=== PATIENT | female | born 1995 | race Caucasian/White ===

== ENCOUNTER 2016-10-23 18:08 | Emergency (ER) | payer MEDICAID ==
[~2016-10-23] VITALS: Ht 154.9 cm; Wt 58.1 kg
[2016-10-23 18:26] VITALS: BP 140/77
--- NOTE | 2016-10-23 19:32 | NUR ---
PATIENT TO ER BED 5
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
--- NOTE | 2016-10-23 20:06 | NUR ---
Patient being evaluated by DR. HSU at bedside.
--- NOTE | 2016-10-23 20:40 | NUR ---
TAKEN FOR X-RAY
[2016-10-23 21:24] VITALS: BP 133/75
--- NOTE | 2016-10-23 21:25 | NUR ---
Patient discharged with v/s stable BY DR. HSU. Written and verbal after care instructions given and explained. Patient alert, oriented and verbalized understanding of instructions. Ambulatory with steady gait. All questions addressed prior to discharge. ID band removed. Patient advised to follow up with PMD. Rx of NAPROSYN 500MG PO given. Patient educated on indication of medication including possible reaction and side effects. Opportunity to ask questions provided and answered.
== END 2016-10-23 21:25 | disposition home or self-care (01) ==
LOC: MED 18:08
DX: S16.1XXA Strain of muscle, fascia and tendon at neck level, initial encounter (principal); V89.2XXA Person injured in unspecified motor-vehicle accident, traffic, initial encounter; Y93.89 Activity, other specified; Y92.89 Other specified places as the place of occurrence of the external cause; Y99.8 Other external cause status
CPT/HCPCS: 72050; 81002; 81025; 99284

== ENCOUNTER 2016-12-23 22:17 | Emergency (ER) | payer MEDICAID ==
[~2016-12-23] VITALS: Ht 154.9 cm; Wt 58.1 kg
[2016-12-23 22:44] VITALS: BP 127/89
--- NOTE | 2016-12-24 00:56 | NUR ---
PATIENT LEFT WITHOUT BEING SEEN BY DR. HSU. NO FURTHER CARE PROVIDED FOR PATIENT.
== END 2016-12-24 00:56 | disposition left against medical advice (07) ==
LOC: MED 22:17
DX: R21 Rash and other nonspecific skin eruption (principal); Z53.21 Procedure and treatment not carried out due to patient leaving prior to being seen by health care provider

== ENCOUNTER 2017-09-23 17:37 | Emergency (ER) | payer MEDICAID ==
[~2017-09-23] VITALS: Ht 154.9 cm; Wt 63.0 kg
[2017-09-23 17:41] VITALS: BP 131/89
--- NOTE | 2017-09-23 17:45 | NUR ---
PATIENT PRESENTS TO ED WITH RIGHT MID ABD PAIN X1 WEEK HX NONE; DENIES N/V/D; SKIN IS PINK/WARM/DRY; AAOX4 WITH EVEN AND STEADY GAIT; LUNGS CLEAR BL; HR EVEN AND REGULAR; PT DENIES ANY FEVER, CP, SOB, OR COUGH AT THIS TIME; PATIENT STATES PAIN OF 9/10 AT THIS TIME; VSS; PATIENT POSITIONED FOR COMFORT; HOB ELEVATED; BEDRAILS UP X2; BED DOWN. ER MD MADE AWARE OF PT STATUS.
--- NOTE | 2017-09-23 18:04 | NUR ---
DR BYRNE EVALUATING AAO PT
--- NOTE | 2017-09-23 18:04 | NUR ---
Deidre chatman in [facility] - 09/23/17 at 1848 by [facility] Patient being evaluated by DR BYRNE at bedside.
[2017-09-23] MEDS ORDERED: DICYCLOMINE HCL LIQUID 20 MG, ALUMINUM HYD/MAG/SIMETHICONE 30 ML, LIDOCAINE VISCOUS 2% ... PO ONE ×3 (18:10)
--- NOTE | 2017-09-23 18:56 | NUR ---
Patient discharged with v/s stable. Written and verbal after care instructions given and explained. Patient alert, oriented and verbalized understanding of instructions. Ambulatory with steady gait. All questions addressed prior to discharge. ID band removed. Patient advised to follow up with PMD. Rx of MOTRIN, PRILOSEC given. Patient educated on indication of medication including possible reaction and side effects. Opportunity to ask questions provided and answered.
[2017-09-23 18:57] VITALS: BP 128/71
== END 2017-09-23 18:56 | disposition home or self-care (01) ==
LOC: MED 17:37
DX: R10.13 Epigastric pain (principal); R11.0 Nausea
CPT/HCPCS: 99283

== ENCOUNTER 2019-02-22 23:43 | Emergency (ER) | payer MEDICAID ==
[~2019-02-22] VITALS: Ht 154.9 cm; Wt 63.5 kg
[2019-02-22 23:51] VITALS: BP 124/69
--- NOTE | 2019-02-22 23:55 | NUR ---
TO ED LOBBY AWAITING BED IN DEPT.
--- NOTE | 2019-02-23 00:06 | NUR ---
PT AMBULATED TO ER BED 4
--- NOTE | 2019-02-23 00:24 | NUR ---
PT TO ED WITH C/O LOWER BACK PAIN WITH DYSURIA AND HEMATURIA X 3 DAYS. NO OBVIOUS BLADDER DISTENTION NOTED. ABLE TO VOID WITHOUT COMPLICATION. PT PLACED INTO BED, PENDING MD HOLMAN.
[2019-02-23] MEDS ORDERED: NACL 0.9% 1,000 ML IV ONE (01:00)
[2019-02-23 01:44] LABS: BILIRUBIN,URINE NEGATIVE (NEGATIVE); BLOOD, URINE 3+ (NEGATIVE); COLOR,URINE YELLOW (YELLOW); LEUKOCYTE ESTERASE ,URINE NEGATIVE (NEGATIVE); NITRITE, URINE NEGATIVE (NEGATIVE); PH,URINE 6.5 (5.0-9.0); UGLUCOSE NEGATIVE (NEGATIVE)
[2019-02-23 01:49] LABS: APPEARANCE,URINE SLIGHTLY HAZY (CLEAR)
[2019-02-23 01:51] LABS: RBC,URINE 50-80 /HPF (0-5)
[2019-02-23 01:56] LABS: BASOPHILS % (AUTO) 0.4 % (0.0-2.0); EOSINOPHILS # (AUTO) 0.2 K/uL (0-0.4); HEMATOCRIT 33.4 % (36-48); HEMOGLOBIN 10.3 g/dL (12.0-16.0); LYMPHOCYTES # (AUTO) 3.2 K/uL (2.5-16.5); LYMPHOCYTES % (AUTO) 27.2 % (20.5-51.1); MEAN CORPUSCULAR HEMOGLOBIN 21 pg (27-31); MEAN CORPUSCULAR HGB CONC 31 g/dL (33-37); MEAN CORPUSCULAR VOLUME 68.7 fL (80-94); MONOCYTES # (AUTO) 0.7 K/uL (0.8-1.0); MONOCYTES % (AUTO) 5.9 % (1.7-9.3); NEUTROPHILS # (AUTO) 7.5 K/uL (1.8-7.7); NEUTROPHILS % (AUTO) 64.5 % (42.2-75.2); PLATELET COUNT (AUTO) 304 K/uL (140-450); RED BLOOD CELL COUNT(AUTO) 4.86 MIL/uL (4.20-5.40); RED CELL DISTRIBUTION WIDTH 18.6 % (11.6-13.7); WHITE BLOOD COUNT (AUTO) 11.6 K/uL (4.8-10.8)
[2019-02-23 01:59] LABS: ANION GAP 10.6 (8-16); CARBON DIOXIDE 28.4 mmol/L (21-32); CREATININE 0.7 mg/dL (0.6-1.3)
[2019-02-23 02:04] LABS: ALBUMIN 3.8 g/dL (3.4-5.0); TOTAL BILIRUBIN 0.1 mg/dL (0.0-1.0)
[2019-02-23] MEDS ORDERED: cefTRIAXone 1,000 MG VIAL ONE (02:19)
--- NOTE | 2019-02-23 02:50 | NUR ---
IV removed, catheter intact and site benign. Applied folded 4x4 gauze and tape to stop bleeding.
[2019-02-23 02:54] VITALS: BP 124/69
== END 2019-02-23 02:55 | disposition home or self-care (01) ==
LOC: MED 23:43
DX: N39.0 Urinary tract infection, site not specified (principal)
CPT/HCPCS: 36415; 80053; 81001; 81025; 85025; 87086; 96365; 99283; J0696; J7030

== ENCOUNTER 2022-03-20 15:04 | Emergency (ER) | payer MEDICAID, OTHER ==
[~2022-03-20] VITALS: Ht 154.9 cm; Wt 67.6 kg
[2022-03-20 15:08] VITALS: BP 125/70
--- NOTE | 2022-03-20 15:15 | NUR ---
KAYLIN. HANDED ON URINE CUP
--- NOTE | 2022-03-20 15:40 | NUR ---
27 y/o female, pt presents to ed with c/o low back and lower abd pain after mechanical fall today. pt states she is currently 14 weeks . denies and vaginal bleeding, syncope, loc. pmh: denies nka med: denies
--- NOTE | 2022-03-20 16:11 | NUR ---
PT AMBULATED TO BED 05.
[2022-03-20] MEDS ORDERED: ACETAMINOPHEN EXTRA STRENGTH 500 MG TAB PO ONE (16:30)
--- NOTE | 2022-03-20 16:40 | NUR ---
Ultrasound at bedside.
[2022-03-20] MEDS ORDERED: ACET-10509 PO (18:26)
[2022-03-20 18:42] VITALS: BP 125/70
--- NOTE | 2022-03-20 18:42 | NUR ---
Patient discharged with v/s stable. Written and verbal after care instructions given and explained. Patient alert, oriented and verbalized understanding of instructions. Ambulatory with steady gait. All questions addressed prior to discharge. ID band removed. Patient advised to follow up with PMD. Rx of tylenol (sent) given. Patient educated on indication of medication including possible reaction and side effects. Opportunity to ask questions provided and answered.
== END 2022-03-20 18:42 | disposition home or self-care (01) ==
LOC: MED 15:04
DX: O9A.212 Injury, poisoning and certain other consequences of external causes complicating pregnancy, second trimester (principal); S30.1XXA Contusion of abdominal wall, initial encounter; S20.229A Contusion of unspecified back wall of thorax, initial encounter; Z3A.17 17 weeks gestation of pregnancy; Z79.899 Other long term (current) drug therapy; W18.39XA Other fall on same level, initial encounter; Y92.89 Other specified places as the place of occurrence of the external cause; Y93.89 Activity, other specified; Y99.8 Other external cause status
CPT/HCPCS: 76805; 99284; Q0092